=== PATIENT | female | born 1945 | race Caucasian/White ===

== ENCOUNTER 2018-12-03 22:44 | Observation (INO) | payer OTHER ==
[~2018-12-03] VITALS: Ht 165.1 cm; Wt 45.4 kg
[~2018-12-03 22:44] MED LIST: FLUT1BLS3 IH; MELO-106 PO; NYST5ORA7 PO
[2018-12-03] MEDS ORDERED: METHYLPREDNISOLONE SOD SUCC 40MG/ML 1ML ONE (23:15)
[2018-12-03] MEDS ORDERED: IPRATROPIUM/ALBUTEROL SULFATE 3 ML SOLUTION IH ONE (23:22)
[2018-12-03 23:49] LABS: BASOPHILS % (AUTO) 0.7 % (0.0-5.0); EOSINOPHILS % (AUTO) 2.8 % (0.0-8.0); HEMATOCRIT 45.1 % (36-48); LYMPHOCYTES % (AUTO) 20.1 % (21.0-51.0); MEAN CORPUSCULAR HEMOGLOBIN 29.1 pg (27.0-33.0); MEAN CORPUSCULAR HGB CONC 32.7 g/dL (32.0-36.0); MONOCYTES % (AUTO) 6.4 % (3.0-13.0); PLATELET COUNT (AUTO) 272 K/uL (130-400); RED BLOOD CELL COUNT(AUTO) 5.07 MIL/uL (4.00-5.50); RED CELL DISTRIBUTION WIDTH 13.5 % (11.0-15.5); WHITE BLOOD COUNT (AUTO) 13.9 K/uL (4.8-10.8)
[2018-12-03 23:53] LABS: ABG BASE EXCESS -0.5 mmol/L (-2.0-3.0); ABG HCO3 26.5 mmol/L (21.0-28.0); ABG OXYGEN SATURATION 89.4 % (95.0-99.0); ABG PCO2 53 mmHg (32-45)
[2018-12-03 23:59] LABS: CREATININE 0.7 mg/dL (0.5-1.5); POTASSIUM 4.2 mmol/L (3.5-5.1)
[2018-12-04 00:03] LABS: ALBUMIN 4.1 g/dL (3.5-5.0); BILIRUBIN,TOTAL 0.4 mg/dL (0.2-1.0); TOTAL PROTEIN, SERUM 7.1 g/dL (6.0-8.3)
[2018-12-04] MEDS ORDERED: DOXYCYCLINE HYCLATE 100 MG TABLET PO ONE (01:17)
[2018-12-04 01:21] LABS: B-TYPE NATRIURETIC PEPTIDE 13 pg/mL (0-100)
[2018-12-04] MEDS ORDERED: ALBUTEROL SULFATE 0.083% 2.5 MG/3 ML INH IH ONE (01:34)
[2018-12-04] MEDS ORDERED: ONDANSETRON HCL 4 MG/2 ML VIAL IVP PRN (03:15)
[2018-12-04] MEDS ORDERED: ACETAMINOPHEN 325 MG TAB PO PRN (03:15)
[2018-12-04] MEDS ORDERED: LEVOFLOXACIN 500 MG TABLET ONE (06:33)
[2018-12-04] MEDS ORDERED: IPRATROPIUM/ALBUTEROL SULFATE 3 ML SOLUTION IH ONE (07:49)
[2018-12-04] MEDS: LEVOFLOXACIN 500 MG TABLET PO SCH (09:00)
[2018-12-04 09:20] VITALS: BP 106/55
[2018-12-04] MEDS: METHYLPREDNISOLONE SOD SUCC 40MG/ML 1ML IVP SCH (10:24)
[2018-12-04] MEDS: ENOXAPARIN SODIUM 30 MG/0.3 ML SQ SCH (10:24)
[2018-12-04] MEDS: IPRATROPIUM/ALBUTEROL SULFATE 3 ML SOLUTION IH SCH ×3 (11:04→23:33)
--- NOTE | 2018-12-04 11:54 | NUR ---
DCP CM met with pt discussed dc plans. Pt is independent prior to admission, lives at home with spouse. Has a walker and shower chair. Denies any other equipments/services. Pt feels safe to go back home, still drives, spouse able to inez with transportation and needs as necessary. DC plan to home once stable. CM to cont to follow up. Addendum: 12/04/18 at 1157 by VIRA STERLING LVN CM Amended: Links added.
[2018-12-04 12:00] VITALS: BP 111/79
[2018-12-04 16:00] VITALS: BP 103/81
--- NOTE | 2018-12-04 16:59 | NUR ---
CALL TO DR. SENIOR T/C TO TO INFORM HIM OF ROOM NUMBER.
[2018-12-04 20:00] VITALS: BP 108/47
[2018-12-05] VITALS: BP 97/45
[2018-12-05 04:00] VITALS: BP 119/65
[2018-12-05] MEDS: IPRATROPIUM/ALBUTEROL SULFATE 3 ML SOLUTION IH SCH ×2 (06:32→11:05)
[2018-12-05 08:00] VITALS: BP 107/57
[2018-12-05] MEDS: LEVOFLOXACIN 500 MG TABLET PO SCH (08:50)
[2018-12-05] MEDS: ENOXAPARIN SODIUM 30 MG/0.3 ML SQ SCH (08:51)
[2018-12-05] MEDS: METHYLPREDNISOLONE SOD SUCC 40MG/ML 1ML IVP SCH (08:51)
[2018-12-05 12:00] VITALS: BP 100/47
[2018-12-05 16:00] VITALS: BP 112/56
--- NOTE | 2018-12-05 18:30 | NUR ---
DISCHARGE PATIENT GIVEN DISCHARGE INSTRUCTIONS VIA TEACH BACK. 20G PIV TO LH DISCONTINUED, TIP INTACT. LEVAQUIN 500MG 1 TA BPO QD X 5 DAYS A MEDROL PACK DIRECTED. MEDICATIONS CALLED INTO [facility] IN [place]. PATIENT STABLE AT THIS TIME. SPOUSE PRESENT AT THIS TIME TO TRANSFER PATIENT HOME.
== END 2018-12-05 18:51 | disposition home or self-care (01) ==
LOC: EDH 22:44 → EDHIP 12-04 01:40 → INTOOBSV 12-04 01:40 → OBSVTOIN 12-04 01:40 → EEVIPCON 12-04 01:40 → 4CH 12-04 08:16
PROVIDERS: ADMIT Internal Medicine; ATTEND Internal Medicine
DX: J44.1 Chronic obstructive pulmonary disease with (acute) exacerbation (principal); J96.91 Respiratory failure, unspecified with hypoxia; Z99.81 Dependence on supplemental oxygen; Z79.899 Other long term (current) drug therapy
CPT/HCPCS: 36415; 71046; 80053; 82550; 82803; 83880; 84484; 85025; 93005; 94640 ×7; 94664; 96372; 96374; 96376; 99284; G0378 ×39; J2920 ×3; J1650

== ENCOUNTER 2019-08-14 17:35 | Emergency (ER) | payer OTHER ==
[~2019-08-14 17:35] MED LIST changes: -MELO-106 PO; -NYST5ORA7 PO
[2019-08-14 18:19] LABS: BASOPHILS % (AUTO) 0.7 % (0.0-5.0); EOSINOPHILS % (AUTO) 4.8 % (0.0-8.0); HEMATOCRIT 45.3 % (36-48); LYMPHOCYTES % (AUTO) 38.7 % (21.0-51.0); MEAN CORPUSCULAR HEMOGLOBIN 27.6 pg (27.0-33.0); MEAN CORPUSCULAR HGB CONC 32.5 g/dL (32.0-36.0); NEUTROPHILS % (AUTO) 46.6 % (40.0-77.0); PLATELET COUNT (AUTO) 302 K/uL (130-400); RED BLOOD CELL COUNT(AUTO) 5.33 MIL/uL (4.00-5.50); RED CELL DISTRIBUTION WIDTH 13.6 % (11.0-15.5); WHITE BLOOD COUNT (AUTO) 9.4 K/uL (4.8-10.8)
[2019-08-14 18:27] LABS: CREATININE 0.7 mg/dL (0.5-1.5); POTASSIUM 4.9 mmol/L (3.5-5.1)
[2019-08-14 18:32] LABS: ALBUMIN 3.6 g/dL (3.5-5.0); BILIRUBIN,TOTAL 0.5 mg/dL (0.2-1.0); TOTAL PROTEIN, SERUM 7.3 g/dL (6.0-8.3)
[2019-08-14] MEDS ORDERED: METHYLPREDNISOLONE SOD SUCC 40MG/ML 1ML ONE (18:51)
[2019-08-14 19:03] LABS: B-TYPE NATRIURETIC PEPTIDE 6 pg/mL (0-100)
[2019-08-14] MEDS ORDERED: IPRATROPIUM/ALBUTEROL SULFATE 3 ML SOLUTION IH ONE (19:08)
[2019-08-14 19:20] LABS: ABG BASE EXCESS -0.5 mmol/L (-2.0-3.0); ABG HCO3 24.9 mmol/L (21.0-28.0); ABG OXYGEN SATURATION 87.5 % (95.0-99.0); ABG PCO2 43 mmHg (32-45)
[2019-08-14 20:40] LABS: APPEARANCE,URINE Cloudy (CLEAR); BILIRUBIN,URINE Negative (NEGATIVE); COLOR,URINE Yellow (YELLOW); GLUCOSE, URINE (UA) Negative (NEGATIVE); KETONES,URINE Negative (NEGATIVE); LEUKOCYTE ESTERASE ,URINE Large (NEGATIVE); NITRATE,URINE Negative (NEGATIVE); OCCULT BLOOD,URINE Negative (NEGATIVE); PROTEIN,URINE Negative (NEGATIVE)
[2019-08-14 21:28] LABS: RBC,URINE None Seen /HPF (0-1)
[2019-08-14 21:29] LABS: BACTERIA,URINE Few /HPF (None Seen)
== END 2019-08-14 21:34 | disposition home or self-care (01) ==
LOC: EDH 17:35
DX: J44.9 Chronic obstructive pulmonary disease, unspecified (principal); F19.20 Other psychoactive substance dependence, uncomplicated; Z90.49 Acquired absence of other specified parts of digestive tract; Z72.0 Tobacco use; J45.909 Unspecified asthma, uncomplicated
CPT/HCPCS: 36415; 36600; 71045; 80053; 81001; 82550; 82803; 83690; 83735; 83880; 84484; 85025; 87804 ×2; 93005; 94640; 96374; 99285; J2920

== ENCOUNTER 2021-07-03 20:16 | Inpatient (IN) | payer OTHER ==
[~2021-07-03] VITALS: Ht 152.4 cm; Wt 44.5 kg
[2021-07-03] MEDS ORDERED: 0.9%NACL 1000ML 1,000 ML IV ONE (21:00)
[2021-07-03] MEDS ORDERED: MORPHINE 4 MG SYG IVP ONE (21:00)
[2021-07-03] MEDS ORDERED: ONDANSETRON 4MG INJ IVP ONE (21:00)
[2021-07-03] MEDS ORDERED: IOHEXOL 350 MG/ML 100ML INFUS..BTL IV ONE (21:05)
[2021-07-03 22:00] LABS: BASOPHILS % (AUTO) 0.4 % (0.0-5.0); EOSINOPHILS % (AUTO) 0.7 % (0.0-8.0); HEMATOCRIT 47.3 % (36-48); LYMPHOCYTES % (AUTO) 15.4 % (21.0-51.0); MEAN CORPUSCULAR HEMOGLOBIN 29.2 pg (27.0-33.0); MEAN CORPUSCULAR HGB CONC 31.9 g/dL (32.0-36.0); MEAN CORPUSCULAR VOLUME 91.5 fL (79-99); MONOCYTES % (AUTO) 6.9 % (3.0-13.0); NEUTROPHILS % (AUTO) 76.1 % (40.0-77.0); PLATELET COUNT (AUTO) 265 K/uL (130-400); RED BLOOD CELL COUNT(AUTO) 5.17 MIL/uL (4.00-5.50); RED CELL DISTRIBUTION WIDTH 13.2 % (11.0-15.5)
[2021-07-03 22:11] LABS: CARBON DIOXIDE 35 mmol/L (21-32); CHLORIDE 99 mmol/L (101-111); CREATININE 0.9 mg/dL (0.5-1.5); GLOMERULAR FILTR. RATE CALC 65 mL/min (>60); GLUCOSE,RANDOM 117 mg/dL (70-105); POTASSIUM 3.6 mmol/L (3.5-5.1); SODIUM SERUM 135 mmol/L (136-145); UREA NITROGEN, BLOOD 7 mg/dL (7-18)
[2021-07-03 22:12] LABS: INR 1.03 (0.85-1.15); PROTHROMBIN TIME 11.2 SEC (9.6-11.6)
[2021-07-03 22:20] LABS: ALANINE AMINOTRANSFERASE 19 U/L (12-78); ALBUMIN 3.5 g/dL (3.5-5.0); ALCOHOL, BLOOD < 3 mg/dL (0-10); ASPARTATE AMINOTRANSFERASE 16 U/L (10-37); BILIRUBIN,TOTAL 0.6 mg/dL (0.2-1.0); CREATINE KINASE, TOTAL 75 U/L (21-232); LIPASE 104 U/L (114-286); TOTAL PROTEIN, SERUM 6.4 g/dL (6.0-8.3)
[2021-07-04] MEDS ORDERED: ENOXAPARIN SODIUM 30 MG/0.3 ML SQ SCH
[2021-07-04] MEDS ORDERED: ONDANSETRON 4MG INJ IVP SCH
[2021-07-04] MEDS ORDERED: MORPHINE 2 MG SYG IVP SCH
[2021-07-04] MEDS ORDERED: ACETAMINOPHEN 325 MG TAB PO SCH ×2
[2021-07-04] MEDS ORDERED: FENTANYL CITRATE PF 50 MCG/1 ML 2ML VIAL ONE (00:07)
[2021-07-04 00:36] LABS: APPEARANCE,URINE Clear (CLEAR); BILIRUBIN,URINE Negative (NEGATIVE); COLOR,URINE Yellow (YELLOW); GLUCOSE, URINE (UA) Negative (NEGATIVE); KETONES,URINE Negative (NEGATIVE); LEUKOCYTE ESTERASE ,URINE Negative (NEGATIVE); NITRATE,URINE Negative (NEGATIVE); OCCULT BLOOD,URINE Negative (NEGATIVE); PROTEIN,URINE Negative (NEGATIVE)
[2021-07-04 00:51] LABS: AMPHET/METH SCREEN,URINE NEGATIVE (NEGATIVE); BARBITURATE SCREEN, URINE NEGATIVE (NEGATIVE); BENZODIAZEPINES SCREEN,URINE NEGATIVE (NEGATIVE); CANNABINOID SCREEN,URINE NEGATIVE (NEGATIVE); COCAINE SCREEN,URINE NEGATIVE (NEGATIVE); OPIATE SCREEN,URINE NEGATIVE (NEGATIVE); PHENCYCLIDINE SCREEN,URINE NEGATIVE (NEGATIVE)
[2021-07-04 03:30] VITALS: BP 117/63
[2021-07-04] MEDS: MORPHINE 2 MG SYG IVP PRN ×3 (04:00→19:50)
[2021-07-04 04:15] LABS: BASOPHILS % (AUTO) 0.5 % (0.0-5.0); EOSINOPHILS % (AUTO) 0.4 % (0.0-8.0); HEMATOCRIT 44.7 % (36-48); LYMPHOCYTES % (AUTO) 20.6 % (21.0-51.0); MEAN CORPUSCULAR HEMOGLOBIN 29.3 pg (27.0-33.0); MEAN CORPUSCULAR VOLUME 91.6 fL (79-99); MONOCYTES % (AUTO) 10.5 % (3.0-13.0); NEUTROPHILS % (AUTO) 67.8 % (40.0-77.0); PLATELET COUNT (AUTO) 245 K/uL (130-400); RED BLOOD CELL COUNT(AUTO) 4.88 MIL/uL (4.00-5.50); RED CELL DISTRIBUTION WIDTH 13.5 % (11.0-15.5); WHITE BLOOD COUNT (AUTO) 12.4 K/uL (4.8-10.8)
[2021-07-04 04:37] LABS: CREATININE 0.8 mg/dL (0.5-1.5); MAGNESIUM 2.1 mg/dL (1.80-2.40); POTASSIUM 4.5 mmol/L (3.5-5.1)
[2021-07-04] MEDS ORDERED: ONDANSETRON 4MG INJ IVP PRN (05:30)
[2021-07-04] MEDS ORDERED: ACETAMINOPHEN 325 MG TAB PO PRN ×2 (05:30)
[2021-07-04] MEDS ORDERED: MONT10TA21 PO (05:51)
[2021-07-04] MEDS ORDERED: PRED5TAB PO (05:51)
[2021-07-04 07:30] VITALS: BP 140/84
[2021-07-04] MEDS: ENOXAPARIN SODIUM 30 MG/0.3 ML SQ SCH ×2 (09:15→22:05)
[2021-07-04 11:00] VITALS: BP 115/56
[2021-07-04 16:00] VITALS: BP 131/53
[2021-07-04 20:20] VITALS: BP 107/55
[2021-07-04] MEDS: TRAMADOL HCL 50 MG TABLET PO PRN (23:53)
[2021-07-05] VITALS (25 sets, daily range): BP systolic 91–140; BP diastolic 35–80
[2021-07-05] MEDS: MORPHINE 2 MG SYG IVP PRN (06:08)
[2021-07-05] MEDS ORDERED: SUCCINYLCHOLINE CHLORIDE 20 MG/ML 10 ML VIAL ONE (16:12)
[2021-07-05] MEDS ORDERED: LIDOCAINE PF 100MG/5ML (2%) SYRINGE 5ML ONE (16:12)
[2021-07-05] MEDS ORDERED: DEXAMETHASONE SOD PHOSPHATE 10MG/ML 1ML VIAL ONE (16:13)
[2021-07-05] MEDS ORDERED: GLYCOPYRROLATE 1 MG/5 ML SYRINGE ONE (16:13)
[2021-07-05] MEDS ORDERED: PROPOFOL 10 MG/ML 20ML VIAL IV ONE (16:13)
[2021-07-05] MEDS ORDERED: MIDAZOLAM HCL 1 MG/ML 2ML VIAL ONE (16:13)
[2021-07-05] MEDS ORDERED: FENTANYL CITRATE PF 50 MCG/1 ML 2ML VIAL ONE (16:14)
[2021-07-05] MEDS ORDERED: ONDANSETRON 4MG INJ ONE (16:14)
[2021-07-05] MEDS ORDERED: NEOSTIGMINE 5MG/5ML SYR IV ONE (16:14)
[2021-07-05] MEDS ORDERED: ROCURONIUM 10MG/1ML SYR 10 MG/ML ML ONE (16:14)
[2021-07-05] MEDS ORDERED: ROPIVACAINE 0.5% 5MG/ML 30ML IJ ONE (16:17)
[2021-07-05] MEDS ORDERED: ALBUMIN (HUMAN) 5% 250 ML IV ONE (16:17)
[2021-07-05] MEDS ORDERED: CALCIUM CARB 500MG PO PRN (17:00)
[2021-07-05] MEDS ORDERED: DiphenhydrAMINE HCL 50 MG/ML VIAL IVP PRN (17:00)
[2021-07-05] MEDS ORDERED: FERROUS FUMARATE 324 MG TABLET PO PRN (17:00)
[2021-07-05] MEDS ORDERED: CEFAZOLIN SODIUM 1 GM VIAL ONE (17:00)
[2021-07-05] MEDS ORDERED: CEFAZOLIN SODIUM 2 GM VIAL IV ONE (17:46)
[2021-07-05] MEDS ORDERED: TRANEXAMIC ACID 1000MG/10ML ONE (18:10)
[2021-07-05] MEDS: CEFAZOLIN SODIUM 1 GM VIAL IVP SCH (22:37)
[2021-07-06] VITALS (8 sets, daily range): BP systolic 96–116; BP diastolic 43–58
[2021-07-06] MEDS: TRAMADOL HCL 50 MG TABLET PO PRN ×2 (00:34→17:45)
[2021-07-06 03:43] LABS: HEMATOCRIT 35.7 % (36-48); MEAN CORPUSCULAR HEMOGLOBIN 29.2 pg (27.0-33.0); MEAN CORPUSCULAR HGB CONC 33.3 g/dL (32.0-36.0); MEAN CORPUSCULAR VOLUME 87.5 fL (79-99); RED BLOOD CELL COUNT(AUTO) 4.08 MIL/uL (4.00-5.50); RED CELL DISTRIBUTION WIDTH 12.6 % (11.0-15.5); WHITE BLOOD COUNT (AUTO) 11.4 K/uL (4.8-10.8)
[2021-07-06 04:06] LABS: CREATININE 0.6 mg/dL (0.5-1.5); MAGNESIUM 1.8 mg/dL (1.80-2.40); POTASSIUM 3.9 mmol/L (3.5-5.1)
[2021-07-06] MEDS: CEFAZOLIN SODIUM 1 GM VIAL IVP SCH (05:38)
[2021-07-06] MEDS: ENOXAPARIN SODIUM 30 MG/0.3 ML SQ SCH (09:14)
[2021-07-06] MEDS: MORPHINE 2 MG SYG IVP PRN (10:09)
[2021-07-07 03:58] LABS: HEMATOCRIT 34.8 % (36-48); MEAN CORPUSCULAR HEMOGLOBIN 29.2 pg (27.0-33.0); MEAN CORPUSCULAR VOLUME 88.3 fL (79-99); RED BLOOD CELL COUNT(AUTO) 3.94 MIL/uL (4.00-5.50); RED CELL DISTRIBUTION WIDTH 12.7 % (11.0-15.5); WHITE BLOOD COUNT (AUTO) 11.9 K/uL (4.8-10.8)
[2021-07-07 04:15] LABS: CREATININE 0.6 mg/dL (0.5-1.5); POTASSIUM 3.8 mmol/L (3.5-5.1)
[2021-07-07 04:21] VITALS: BP 100/55
[2021-07-07] MEDS: TRAMADOL HCL 50 MG TABLET PO PRN ×2 (06:10→17:02)
[2021-07-07 07:30] VITALS: BP 99/43
[2021-07-07] MEDS: ENOXAPARIN SODIUM 30 MG/0.3 ML SQ SCH (08:37)
[2021-07-07] MEDS: MORPHINE 2 MG SYG IVP PRN (08:38)
[2021-07-07 11:00] VITALS: BP 96/42
[2021-07-07 16:00] VITALS: BP 101/41
[2021-07-07 20:26] VITALS: BP 117/62
[2021-07-07 23:40] VITALS: BP 106/59
[2021-07-08] MEDS: TRAMADOL HCL 50 MG TABLET PO PRN ×2 (04:22→14:38)
[2021-07-08 04:25] VITALS: BP 118/50
[2021-07-08 08:33] VITALS: BP 104/55
[2021-07-08] MEDS: MORPHINE 2 MG SYG IVP PRN (08:56)
[2021-07-08] MEDS: ENOXAPARIN SODIUM 30 MG/0.3 ML SQ SCH (08:56)
[2021-07-08 10:45] VITALS: BP 100/52
[2021-07-08 16:37] VITALS: BP 114/60
== END 2021-07-08 21:32 | disposition home or self-care (01) | DRG 481 ==
LOC: EDH 20:16 → EDHIP 07-04 00:24 → 4AH 07-04 03:23
PROVIDERS: ADMIT Internal Medicine Infectious Disease; ATTEND Internal Medicine Infectious Disease
PROC: 0QH706Z Insertion of Intramedullary Internal Fixation Device into Left Upper Femur, Open Approach (ICD-10-PCS; principal; 2021-07-05 17:57)
DX: S72.142A Displaced intertrochanteric fracture of left femur, initial encounter for closed fracture (principal); J44.1 Chronic obstructive pulmonary disease with (acute) exacerbation; J96.11 Chronic respiratory failure with hypoxia; N17.9 Acute kidney failure, unspecified; Z68.1 Body mass index [BMI] 19.9 or less, adult; R91.8 Other nonspecific abnormal finding of lung field; D72.829 Elevated white blood cell count, unspecified; N18.9 Chronic kidney disease, unspecified; R62.7 Adult failure to thrive; I12.9 Hypertensive chronic kidney disease with stage 1 through stage 4 chronic kidney disease, or unspecified chronic kidney disease; Z20.822 Contact with and (suspected) exposure to COVID-19; W07.XXXA Fall from chair, initial encounter; Y93.89 Activity, other specified; Y92.098 Other place in other non-institutional residence as the place of occurrence of the external cause; Y99.8 Other external cause status; Z99.81 Dependence on supplemental oxygen; Z87.891 Personal history of nicotine dependence; Z91.19 Patient's noncompliance with other medical treatment and regimen; Z82.3 Family history of stroke; Z80.59 Family history of malignant neoplasm of other urinary tract organ; Z80.8 Family history of malignant neoplasm of other organs or systems; Z82.0 Family history of epilepsy and other diseases of the nervous system
CPT/HCPCS: 36415; 70450; 71260; 72125; 73501; 73503; 74177; 78306; 80048; 80053; 80305; 81003; 82550; 83690; 83735; 84484; 85025; 85027; 85610; 87040; 87635; 93005; 97039; A9503; G0378; J0330; J0690; J1100; J1200; J1650; J2001; J2250; J2270; J2405; J2704; J2710; J2795; J3010; J3490; J7120; P9045; Q9967

== ENCOUNTER 2021-11-05 10:11 | Inpatient (IN) | payer OTHER ==
[~2021-11-05] VITALS: Ht 152.4 cm; Wt 42.8 kg
[~2021-11-05 10:11] MED LIST changes: +MONT10TA21 PO; +PRED5TAB PO
[2021-11-05] MEDS ORDERED: PRED10TA3 PO (10:23)
[2021-11-05] MEDS ORDERED: ESOM20CA39 PO (10:23)
[2021-11-05 11:02] LABS: HEMATOCRIT 46.7 % (36-48); MEAN CORPUSCULAR HEMOGLOBIN 27.6 pg (27.0-33.0); MEAN CORPUSCULAR HGB CONC 32.8 g/dL (32.0-36.0); MEAN CORPUSCULAR VOLUME 84.3 fL (79-99); PLATELET COUNT (AUTO) 221 K/uL (130-400); RED BLOOD CELL COUNT(AUTO) 5.54 MIL/uL (4.00-5.50); RED CELL DISTRIBUTION WIDTH 13.8 % (11.0-15.5); WHITE BLOOD COUNT (AUTO) 22.5 K/uL (4.8-10.8)
[2021-11-05 11:16] LABS: CREATININE 0.7 mg/dL (0.5-1.5)
[2021-11-05 11:21] LABS: ALBUMIN 3.3 g/dL (3.5-5.0); BILIRUBIN,TOTAL 1.9 mg/dL (0.2-1.0); TOTAL PROTEIN, SERUM 6.3 g/dL (6.0-8.3)
[2021-11-05 11:35] LABS: BASOPHILS % (MANUAL) 1 % (0-2); EOSINOPHILS % (MANUAL) 1 % (1-6); LYMPHOCYTES % (MANUAL) 4 % (22-44); MONOCYTES % (MANUAL) 5 % (2-9); SEGMENTED NEUTROPHILS % 89 % (40-70)
[2021-11-05 11:37] LABS: PLATELET MORPHOLOGY COMMENT ADEQUATE
[2021-11-05 11:51] LABS: MAN.DIFF COMMENT-IMPRESSION MANUAL DIFFERENTIAL
[2021-11-05] MEDS ORDERED: CEFTRIAXONE 1G VIAL IVP ONE (12:00)
[2021-11-05] MEDS ORDERED: AZITHROMYCIN 250 MG TABLET PO ONE (12:00)
[2021-11-05] MEDS ORDERED: 0.9% NACL 500ML IV.SOLN 500 ML IV ONE (12:00)
[2021-11-05] MEDS ORDERED: IOHEXOL 350 MG/ML 100ML INFUS..BTL IV ONE (13:59)
[2021-11-05] MEDS ORDERED: ONDANSETRON 4MG INJ IVP PRN (16:30)
[2021-11-05] MEDS: CEFTRIAXONE 1G VIAL IVP SCH (16:30)
[2021-11-05] MEDS ORDERED: ACETAMINOPHEN 325 MG TAB PO PRN (16:30)
[2021-11-05] MEDS ORDERED: 0.9% NACL 250ML 250 ML ONE (16:51)
[2021-11-05] MEDS: DOXYCYCLINE 100MG+NS 250ML IV SCH (16:56)
[2021-11-05] MEDS: IPRATROPIUM/ALBUTEROL SULFATE 3 ML SOLUTION IH SCH (18:36)
[2021-11-05 20:40] VITALS: BP 101/44
[2021-11-05 23:27] VITALS: BP 100/44
[2021-11-06] MEDS: IPRATROPIUM/ALBUTEROL SULFATE 3 ML SOLUTION IH SCH ×4 (00:03→19:31)
[2021-11-06] MEDS ORDERED: 0.9% NACL 250ML 250 ML ONE (04:01)
[2021-11-06] MEDS: DOXYCYCLINE 100MG+NS 250ML IV SCH ×2 (04:04→18:03)
[2021-11-06 04:22] LABS: HEMATOCRIT 41.8 % (36-48); MEAN CORPUSCULAR HEMOGLOBIN 27.8 pg (27.0-33.0); MEAN CORPUSCULAR HGB CONC 32.5 g/dL (32.0-36.0); MEAN CORPUSCULAR VOLUME 85.5 fL (79-99); RED BLOOD CELL COUNT(AUTO) 4.89 MIL/uL (4.00-5.50); RED CELL DISTRIBUTION WIDTH 13.9 % (11.0-15.5); WHITE BLOOD COUNT (AUTO) 21.5 K/uL (4.8-10.8)
[2021-11-06 04:29] VITALS: BP 98/72
[2021-11-06 04:30] LABS: CREATININE 0.6 mg/dL (0.5-1.5); MAGNESIUM 1.7 mg/dL (1.80-2.40); POTASSIUM 3.8 mmol/L (3.5-5.1)
[2021-11-06] MEDS ORDERED: ACETAMINOPHEN 650 MG/20.3 ML UDCUP PO PRN ×2 (04:30→05:00)
[2021-11-06 07:40] VITALS: BP_SYST 70; BP_SYST 87; BP_DIAS 27; BP_DIAS 49
[2021-11-06] MEDS ORDERED: ENOXAPARIN SODIUM 40 MG/0.4 ML SYRINGE SQ SCH (09:00)
[2021-11-06] MEDS ORDERED: SOLU-MEDROL 40MG VIAL IVP SCH (09:00)
[2021-11-06 09:45] VITALS: BP 93/39
[2021-11-06 11:40] VITALS: BP 124/58
[2021-11-06] MEDS ORDERED: LACTULOSE 20 GM/30 ML UDCUP PO PRN (14:30)
[2021-11-06] MEDS ORDERED: LABETALOL 20MG SYG IV PRN (14:30)
[2021-11-06] MEDS ORDERED: HYDRALAZINE 20MG/ML VIAL IV PRN (14:30)
[2021-11-06 14:46] LABS: ABG BASE EXCESS -0.6 mmol/L (-2.0-3.0); ABG HCO3 23.5 mmol/L (21.0-28.0); ABG OXYGEN SATURATION 95.1 % (95.0-99.0); ABG PCO2 37 mmHg (32-45)
[2021-11-06 15:40] VITALS: BP 122/60
[2021-11-06] MEDS: INSULIN HUMULIN R 100 UNIT/ML 3ML SQ SCH ×2 (16:30→20:43)
[2021-11-06] MEDS: CEFTRIAXONE 1G VIAL IVP SCH (18:01)
[2021-11-06] MEDS: CLOTRIMAZOLE 10 MG TROCHE MM SCH (18:14)
[2021-11-06] MEDS: ACETYLCYSTEINE 10% 100MG/ML 4ML VIAL IH SCH (19:31)
[2021-11-06] MEDS: BUDESONIDE 0.25 MG/2 ML INH IH SCH (19:31)
[2021-11-06 20:00] VITALS: BP 102/48
[2021-11-06] MEDS: MONTELUKAST SODIUM 10 MG TAB PO SCH (20:36)
[2021-11-06] MEDS: APIXABAN 5 MG TABLET PO SCH (20:36)
[2021-11-06] MEDS: SOLU-MEDROL 40MG VIAL IVP SCH (20:38)
[2021-11-07] VITALS (7 sets, daily range): BP systolic 98–122; BP diastolic 40–65
[2021-11-07] MEDS: IPRATROPIUM/ALBUTEROL SULFATE 3 ML SOLUTION IH SCH ×5 (01:09→23:41)
[2021-11-07] MEDS: ACETYLCYSTEINE 10% 100MG/ML 4ML VIAL IH SCH ×5 (01:09→23:42)
[2021-11-07] MEDS ORDERED: 0.9% NACL 250ML 250 ML ONE ×2 (03:50→15:47)
[2021-11-07] MEDS: DOXYCYCLINE 100MG+NS 250ML IV SCH ×2 (03:51→16:14)
[2021-11-07 05:24] LABS: HEMATOCRIT 35.7 % (36-48); MEAN CORPUSCULAR HEMOGLOBIN 28.8 pg (27.0-33.0); MEAN CORPUSCULAR HGB CONC 34.2 g/dL (32.0-36.0); MEAN CORPUSCULAR VOLUME 84.2 fL (79-99); RED BLOOD CELL COUNT(AUTO) 4.24 MIL/uL (4.00-5.50); RED CELL DISTRIBUTION WIDTH 13.6 % (11.0-15.5)
[2021-11-07 05:49] LABS: CREATININE 0.4 mg/dL (0.5-1.5); POTASSIUM 3.8 mmol/L (3.5-5.1)
[2021-11-07] MEDS: BUDESONIDE 0.25 MG/2 ML INH IH SCH ×2 (06:33→18:32)
[2021-11-07] MEDS: INSULIN HUMULIN R 100 UNIT/ML 3ML SQ SCH ×4 (07:30→21:59)
[2021-11-07] MEDS: PANTOPRAZOLE 40 MG TAB DR PO SCH (09:52)
[2021-11-07] MEDS: APIXABAN 5 MG TABLET PO SCH (09:52)
[2021-11-07] MEDS: SOLU-MEDROL 40MG VIAL IVP SCH ×2 (09:56→22:00)
[2021-11-07] MEDS: CLOTRIMAZOLE 10 MG TROCHE MM SCH ×3 (10:01→14:58)
[2021-11-07] MEDS: CEFTRIAXONE 2GM VIAL IVP SCH (14:56)
[2021-11-07] MEDS: ENOXAPARIN SODIUM 40 MG/0.4 ML SYRINGE SQ SCH (22:00)
[2021-11-07] MEDS: MONTELUKAST SODIUM 10 MG TAB PO SCH (22:00)
[2021-11-08 04:00] VITALS: BP 105/63
[2021-11-08] MEDS ORDERED: 0.9% NACL 250ML 250 ML ONE ×2 (04:40→16:26)
[2021-11-08] MEDS: DOXYCYCLINE 100MG+NS 250ML IV SCH ×2 (04:44→17:11)
[2021-11-08 05:14] LABS: BASOPHILS % (AUTO) 0.1 % (0.0-5.0); LYMPHOCYTES % (AUTO) 3.4 % (21.0-51.0); MEAN CORPUSCULAR HEMOGLOBIN 27.8 pg (27.0-33.0); MEAN CORPUSCULAR HGB CONC 32.7 g/dL (32.0-36.0); MEAN CORPUSCULAR VOLUME 85.1 fL (79-99); MONOCYTES % (AUTO) 4.1 % (3.0-13.0); PLATELET COUNT (AUTO) 278 K/uL (130-400); RED BLOOD CELL COUNT(AUTO) 4.35 MIL/uL (4.00-5.50); RED CELL DISTRIBUTION WIDTH 13.7 % (11.0-15.5); WHITE BLOOD COUNT (AUTO) 19.3 K/uL (4.8-10.8)
[2021-11-08 05:49] LABS: ALBUMIN 2.4 g/dL (3.5-5.0); BILIRUBIN,TOTAL 0.4 mg/dL (0.2-1.0); CREATININE 0.5 mg/dL (0.5-1.5); MAGNESIUM 1.9 mg/dL (1.80-2.40); POTASSIUM 4.3 mmol/L (3.5-5.1); TOTAL PROTEIN, SERUM 5.9 g/dL (6.0-8.3)
[2021-11-08] MEDS: ACETYLCYSTEINE 10% 100MG/ML 4ML VIAL IH SCH ×2 (06:22→11:19)
[2021-11-08] MEDS: IPRATROPIUM/ALBUTEROL SULFATE 3 ML SOLUTION IH SCH ×4 (06:22→23:25)
[2021-11-08] MEDS: INSULIN HUMULIN R 100 UNIT/ML 3ML SQ SCH ×4 (06:41→21:06)
[2021-11-08] MEDS: BUDESONIDE 0.25 MG/2 ML INH IH SCH ×2 (06:45→18:23)
[2021-11-08] MEDS: CLOTRIMAZOLE 10 MG TROCHE MM SCH ×4 (07:46→18:12)
[2021-11-08 08:00] VITALS: BP 92/47
[2021-11-08] MEDS: ENOXAPARIN SODIUM 40 MG/0.4 ML SYRINGE SQ SCH ×2 (09:21→20:34)
[2021-11-08] MEDS: SOLU-MEDROL 40MG VIAL IVP SCH ×2 (09:21→20:34)
[2021-11-08] MEDS: PANTOPRAZOLE 40 MG TAB DR PO SCH (09:21)
[2021-11-08 12:00] VITALS: BP 110/73
[2021-11-08] MEDS ORDERED: IOHEXOL-350 75 ML VIAL IV ONE (12:21)
[2021-11-08] MEDS: CEFTRIAXONE 2GM VIAL IVP SCH (14:14)
[2021-11-08 16:00] VITALS: BP 124/45
[2021-11-08 20:11] VITALS: BP 106/50
[2021-11-08] MEDS: MONTELUKAST SODIUM 10 MG TAB PO SCH (20:34)
[2021-11-09] VITALS (7 sets, daily range): BP systolic 95–131; BP diastolic 48–63
[2021-11-09] MEDS: CLOTRIMAZOLE 10 MG TROCHE MM SCH ×4 (00:54→17:31)
[2021-11-09] MEDS ORDERED: 0.9% NACL 250ML 250 ML ONE (03:43)
[2021-11-09] MEDS: DOXYCYCLINE 100MG+NS 250ML IV SCH (04:30)
[2021-11-09 04:41] LABS: BASOPHILS % (AUTO) 0.2 % (0.0-5.0); HEMATOCRIT 37.1 % (36-48); LYMPHOCYTES % (AUTO) 4.6 % (21.0-51.0); MEAN CORPUSCULAR HEMOGLOBIN 28.8 pg (27.0-33.0); MEAN CORPUSCULAR HGB CONC 32.6 g/dL (32.0-36.0); MEAN CORPUSCULAR VOLUME 88.3 fL (79-99); MONOCYTES % (AUTO) 4.5 % (3.0-13.0); NEUTROPHILS % (AUTO) 90.1 % (40.0-77.0); PLATELET COUNT (AUTO) 296 K/uL (130-400); RED CELL DISTRIBUTION WIDTH 14.1 % (11.0-15.5); WHITE BLOOD COUNT (AUTO) 12.5 K/uL (4.8-10.8)
[2021-11-09 05:00] LABS: B-TYPE NATRIURETIC PEPTIDE 111 pg/mL (0-100)
[2021-11-09 05:13] LABS: ALBUMIN 2.2 g/dL (3.5-5.0); BILIRUBIN,TOTAL 0.2 mg/dL (0.2-1.0); CREATININE 0.5 mg/dL (0.5-1.5); MAGNESIUM 2.2 mg/dL (1.80-2.40); PHOSPHORUS 2.8 mg/dL (2.5-4.9); TOTAL PROTEIN, SERUM 5.7 g/dL (6.0-8.3)
[2021-11-09] MEDS: INSULIN HUMULIN R 100 UNIT/ML 3ML SQ SCH ×4 (06:19→21:00)
[2021-11-09] MEDS: IPRATROPIUM/ALBUTEROL SULFATE 3 ML SOLUTION IH SCH ×4 (06:23→23:11)
[2021-11-09] MEDS: BUDESONIDE 0.25 MG/2 ML INH IH SCH ×2 (06:23→18:48)
[2021-11-09] MEDS: SOLU-MEDROL 40MG VIAL IVP SCH (10:36)
[2021-11-09] MEDS: PANTOPRAZOLE 40 MG TAB DR PO SCH (10:37)
[2021-11-09] MEDS: ENOXAPARIN SODIUM 40 MG/0.4 ML SYRINGE SQ SCH ×2 (10:37→21:08)
[2021-11-09] MEDS: CEFTRIAXONE 2GM VIAL IVP SCH (12:24)
[2021-11-09 14:07] LABS: INR 0.94 (0.85-1.15); PROTHROMBIN TIME 10.3 SEC (9.6-11.6)
[2021-11-09 14:08] LABS: PARTIAL THROMBOPLASTIN TIME 28.5 SEC (26.3-35.5)
[2021-11-09] MEDS ORDERED: LEVOFLOXACIN 500 MG/D5W 100 ML 100 ML IV SCH (15:30)
[2021-11-09] MEDS: MONTELUKAST SODIUM 10 MG TAB PO SCH (21:07)
[2021-11-09] MEDS: LEVOFLOXACIN 500 MG/D5W 100 ML 100 ML IV SCH (21:08)
[2021-11-10] MEDS: CLOTRIMAZOLE 10 MG TROCHE MM SCH ×5 (01:16→23:45)
[2021-11-10 04:10] VITALS: BP 114/46
[2021-11-10 05:02] LABS: EOSINOPHILS % (AUTO) 0.1 % (0.0-8.0); HEMATOCRIT 37.4 % (36-48); LYMPHOCYTES % (AUTO) 12.1 % (21.0-51.0); MEAN CORPUSCULAR HGB CONC 31.6 g/dL (32.0-36.0); MEAN CORPUSCULAR VOLUME 88.6 fL (79-99); MONOCYTES % (AUTO) 9.2 % (3.0-13.0); NEUTROPHILS % (AUTO) 78.2 % (40.0-77.0); PLATELET COUNT (AUTO) 328 K/uL (130-400); RED BLOOD CELL COUNT(AUTO) 4.22 MIL/uL (4.00-5.50); RED CELL DISTRIBUTION WIDTH 13.8 % (11.0-15.5); WHITE BLOOD COUNT (AUTO) 10.4 K/uL (4.8-10.8)
[2021-11-10 05:09] LABS: INR 0.95 (0.85-1.15); PROTHROMBIN TIME 10.4 SEC (9.6-11.6)
[2021-11-10 05:10] LABS: PARTIAL THROMBOPLASTIN TIME 27.3 SEC (26.3-35.5)
[2021-11-10 05:42] LABS: ALBUMIN 2.3 g/dL (3.5-5.0); BILIRUBIN,TOTAL 0.2 mg/dL (0.2-1.0); CREATININE 0.6 mg/dL (0.5-1.5); PHOSPHORUS 3.2 mg/dL (2.5-4.9); POTASSIUM 3.9 mmol/L (3.5-5.1); TOTAL PROTEIN, SERUM 5.5 g/dL (6.0-8.3)
[2021-11-10] MEDS: INSULIN HUMULIN R 100 UNIT/ML 3ML SQ SCH ×4 (06:08→21:00)
[2021-11-10] MEDS: IPRATROPIUM/ALBUTEROL SULFATE 3 ML SOLUTION IH SCH ×4 (06:48→23:06)
[2021-11-10] MEDS: BUDESONIDE 0.25 MG/2 ML INH IH SCH ×2 (06:48→18:20)
[2021-11-10 08:00] VITALS: BP 140/58
[2021-11-10] MEDS: PANTOPRAZOLE 40 MG TAB DR PO SCH (08:00)
[2021-11-10] MEDS: PREDNISONE 20 MG TABLET PO SCH (08:00)
[2021-11-10] MEDS: ENOXAPARIN SODIUM 40 MG/0.4 ML SYRINGE SQ SCH ×2 (08:01→21:36)
[2021-11-10 12:00] VITALS: BP 135/57
[2021-11-10 16:00] VITALS: BP 127/54
[2021-11-10 20:25] VITALS: BP 120/56
[2021-11-10] MEDS: MONTELUKAST SODIUM 10 MG TAB PO SCH (21:36)
[2021-11-10] MEDS: LEVOFLOXACIN 500 MG/D5W 100 ML 100 ML IV SCH (21:36)
[2021-11-10] MEDS ORDERED: MORPHINE 4 MG SYG IVP PRN (22:00)
[2021-11-10 23:38] VITALS: BP 116/50
[2021-11-11 04:45] VITALS: BP 106/63
[2021-11-11 05:27] LABS: HEMATOCRIT 39.1 % (36-48); MEAN CORPUSCULAR HEMOGLOBIN 28.4 pg (27.0-33.0); MEAN CORPUSCULAR HGB CONC 32.2 g/dL (32.0-36.0); MEAN CORPUSCULAR VOLUME 88.1 fL (79-99); RED BLOOD CELL COUNT(AUTO) 4.44 MIL/uL (4.00-5.50); RED CELL DISTRIBUTION WIDTH 13.9 % (11.0-15.5); WHITE BLOOD COUNT (AUTO) 10.8 K/uL (4.8-10.8)
[2021-11-11 05:48] LABS: CREATININE 0.5 mg/dL (0.5-1.5); MAGNESIUM 1.8 mg/dL (1.80-2.40); PHOSPHORUS 2.9 mg/dL (2.5-4.9); POTASSIUM 3.8 mmol/L (3.5-5.1)
[2021-11-11] MEDS: CLOTRIMAZOLE 10 MG TROCHE MM SCH ×3 (06:00→18:00)
[2021-11-11] MEDS: IPRATROPIUM/ALBUTEROL SULFATE 3 ML SOLUTION IH SCH ×3 (06:37→18:12)
[2021-11-11] MEDS: BUDESONIDE 0.25 MG/2 ML INH IH SCH ×2 (06:37→18:12)
[2021-11-11] MEDS: INSULIN HUMULIN R 100 UNIT/ML 3ML SQ SCH ×3 (06:57→16:30)
[2021-11-11 08:00] VITALS: BP 113/60
[2021-11-11] MEDS ORDERED: APIXABAN 5 MG TABLET PO SCH (09:00)
[2021-11-11] MEDS: PREDNISONE 20 MG TABLET PO SCH (10:28)
[2021-11-11] MEDS: PANTOPRAZOLE 40 MG TAB DR PO SCH (10:28)
[2021-11-11 12:00] VITALS: BP 121/55
[2021-11-11 16:00] VITALS: BP 104/49
== END 2021-11-11 19:15 | disposition home or self-care (01) | DRG 871 ==
LOC: EDH 10:11 → EDHIP 16:00 → 3BH 20:39 → 3AH 11-08 15:02
PROVIDERS: ADMIT Internal Medicine Infectious Disease; ATTEND Internal Medicine Infectious Disease
DX: A41.50 Gram-negative sepsis, unspecified (principal); J96.21 Acute and chronic respiratory failure with hypoxia; J15.6 Pneumonia due to other Gram-negative bacteria; I26.99 Other pulmonary embolism without acute cor pulmonale; J44.1 Chronic obstructive pulmonary disease with (acute) exacerbation; E87.1 Hypo-osmolality and hyponatremia; I82.432 Acute embolism and thrombosis of left popliteal vein; J44.0 Chronic obstructive pulmonary disease with (acute) lower respiratory infection; Z68.1 Body mass index [BMI] 19.9 or less, adult; Z99.81 Dependence on supplemental oxygen; Z20.822 Contact with and (suspected) exposure to COVID-19; Z90.49 Acquired absence of other specified parts of digestive tract; F17.200 Nicotine dependence, unspecified, uncomplicated; I10 Essential (primary) hypertension; R53.81 Other malaise; Z79.899 Other long term (current) drug therapy; Z79.52 Long term (current) use of systemic steroids; Z86.718 Personal history of other venous thrombosis and embolism; R62.7 Adult failure to thrive
CPT/HCPCS: 36415; 36600; 71045; 71275; 80048; 80053; 82550; 82803; 82948; 83605; 83735; 83874; 83880; 84100; 84145; 84484; 85025; 85027; 85378; 85610; 85730; 87040; 87071; 87077; 87116; 87186; 87205; 87206; 87635; 93005; 93970; 94640; 94664; 94667; 94668; 97039; G0378; J0696; J1650; J1815; J1956; J2920; J3490; J7040; J7050; J7608; Q9967